=== PATIENT | female | born 1995 | race Caucasian/White ===

== ENCOUNTER 2018-01-30 20:12 | Emergency (ER) | payer MEDICAID, OTHER ==
[2018-01-30] MEDS ORDERED: Acetaminophen 500 MG TAB ONE (20:47)
[2018-01-30] MEDS ORDERED: Ibuprofen 800 MG TAB ONE (20:47)
== END 2018-01-30 21:23 | disposition home or self-care (01) ==
LOC: ERS 20:12
DX: H65.93 Unspecified nonsuppurative otitis media, bilateral (principal); J06.9 Acute upper respiratory infection, unspecified
CPT/HCPCS: 99282

== ENCOUNTER 2018-10-18 09:30 | Outpatient (CLI) | payer OTHER ==
--- NOTE | 2018-10-18 10:13 | ULT ---
Hepatic Doppler ultrasound: 10/18/2018 HISTORY: Elevated liver function tests COMPARISON: None available TECHNIQUE: Multiplanar grayscale sonographic imaging of the upper abdomen obtained with assessment of the hepatic and splenic vasculature, including color flow and spectral analysis FINDINGS: Imaged pancreas appears grossly unremarkable, distal body and tail obscured by bowel gas. T he abdominal aorta and IVC appear grossly unremarkable. The hepatic parenchyma is diffusely echogenic, suggesting hepatocellular disease, such as hepatic moises atosis. This limits assessment for focal liver lesion. The left portal vein, left hepatic vein, middle hepatic vein, right hepatic vein, main portal vein, a nd right portal vein are patent and demonstrate appropriate waveforms. Hepatic artery is patent and demonstrates an appropriate waveform. No gallbladder wall thickening or pericholecystic fluid. No gallstones are seen. The common bile duct measures 4 mm, within normal limits. Spleen is upper limits of normal in size, measuring approximately 13.6 x 4.7 cm. The splenic artery a nd splenic vein are patent and demonstrate appropriate arterial and venous waveforms respectively. IMPRESSION: Hepatic and splenic vascular structures are patent and demonstrate proper directional [place] w. Increased echogenicity of the hepatic parenchyma suggest steatosis.
== END 2018-10-18 09:31 | disposition home or self-care (01) ==
LOC: SCSULT 09:30
PROVIDERS: ATTEND Family Medicine
DX: R74.0 Nonspecific elevation of levels of transaminase and lactic acid dehydrogenase [LDH] (principal); R93.2 Abnormal findings on diagnostic imaging of liver and biliary tract
CPT/HCPCS: 76705

== ENCOUNTER 2019-01-05 11:26 | Emergency (ER) | payer OTHER ==
--- NOTE | 2019-01-05 11:58 | RAD ---
EXAM: 3 views of the left foot HISTORY: Foot pain after stepping on a nail COMPARISON: None FINDINGS: 3 views of the left foot shows no evidence of acute fracture or dislocation. No soft tissue swelling is seen. No degenerative changes are present. No radiopaque foreign body is seen. IMPRESSION: No evidence of acute osseous abnormality.
[2019-01-05] MEDS ORDERED: Adacel (T-DAP) 0.5 ML SYRINGE ONE (12:57)
[2019-01-05] MEDS ORDERED: Sterile Water 10 ML ONE (13:09)
[2019-01-05] MEDS ORDERED: cefTRIAXone\\ROCEPHIN 1 GM VIAL ONE (13:09)
== END 2019-01-05 13:20 | disposition home or self-care (01) ==
LOC: ERS 11:26
DX: S91.332A Puncture wound without foreign body, left foot, initial encounter (principal); W45.0XXA Nail entering through skin, initial encounter
CPT/HCPCS: 90471; 90715; 96372; J0696